=== PATIENT | female | born 1980 | race Caucasian/White ===

== ENCOUNTER 2021-03-02 09:16 | Emergency (ER) | payer OTHER, SELFPAY ==
[2021-03-02 09:17] VITALS: BP 115/77; PULSE 64; RESP 16; TEMP 36.3; O2SAT 100; BMI 25.8
--- NOTE | 2021-03-02 09:43 | EX.ED.DYSGE1 ---
HPI History of Present Illness Chief Complaint: Abd Pain Informant: patient and EMS Narrative Narrative: 40-year-old female presenting to the emergency department with abdominal pain and vomiting. Patient states that approximately 0230 hours last night she began to vomit. She notes that after several times of having emesis her abdomen started to hurt. She notes pain mostly on the right side of her abdomen that seems to radiate towards the center. She denies any radiation to the back. No diarrhea. No fevers. No known bad food exposures. No one else has been sick. She denies a history of pancreatitis. She notes that she does use cannabis but not regularly. PFSH PFSH Medical History no medical history no medical history Home Medications ondansetron 4 mg PO Q6H PRN PRN #15 tab 03/02/21 [Rx Last Taken Unknown] Allergy/AdvReac Type Severity Reaction Status Date / Time doxycycline AdvReac Vomiting Verified 03/02/21 09:20 Surgical History no surgical history no surgical history Social History (Updated 03/02/21 @ 09:[address] Jose Luis George, DO) Smoking Status: Current every day smoker tobacco type: e-cigarettes Electronic Cigarette Use: with nicotine substance use type: marijuana ROS ROS ED Constitutional Constitutional ED: Denies chills or weight loss Eyes Eyes: Denies change in vision or diplopia ENT ENT ED: Denies ear pain, rhinorrhea or sore throat Cardiovascular Cardiovascular: Denies chest pain, orthopnea, palpitations or racing heartbeat Respiratory/Chest Respiratory/Chest: Denies cough, dyspnea or orthopnea Gastrointestinal Gastrointestinal: Reports abdominal pain, nausea and vomiting; Denies diarrhea Genitourinary Genitourinary ED: Denies dysuria, hematuria or urinary frequency Musculoskeletal Musculoskeletal: Denies arthralgias or myalgias Integumentary Denies abscess or rash Neurologic Neurologic: Denies headache(s) or weakness Psychiatric Psychiatric: Denies anxiety, depression, suicidal ideation or suicidal thoughts Endocrine Endocrinology: Denies polydipsia, polyphagia or polyuria Allergic/Immunologic Allergic/Immunologic ED: Denies mouth swelling, tongue swelling or urticaria EXAM Physical Exam Narrative Exam Narrative: Patient sitting on the bed experiencing dry heaves Const Vital Signs: 03/02/21 09:17 03/02/21 13:00 Temperature 97.4 F L Temperature Source Temporal Pulse Rate 64 60 Respiratory Rate 16 18 Blood Pressure 115/77 120/74 Blood Pressure Mean 89 89 Pulse Ox 100 100 Oxygen Delivery Method Room Air Room Air Positive well nourished and well developed General Appearance ED: well developed HEENT Reports normocephalic, head/scalp atraumatic and moist mucous membranes Eyes PERRL and EOMs intact bilaterally Neck no lymphadenopathy, supple and no JVD Resp normal respiratory effort and clear to auscultation bilaterally Cardio regular rate, regular rhythm and no murmurs GI Auscultation: normoactive bowel sounds Palpation: soft and tender Back/Spine no CVA tenderness and normal ROM Extremity normal to inspection General Extremety ED: Negative for edema General Extremity: Negative for edema Neuro oriented x3 and CN's II-XII intact bilaterally Sensorium / Orientation: alert Motor Exam: strength 5/5 throughout Psych mental status grossly normal Mood & Affect: Negative for depressed or tearful Skin no rashes or lesions noted and no wounds MDM MDM MDM Narrative Medical decision making narrative: Patient received IV fluids, Zofran and morphine. She states she is not any better. White count returns at 13.7. CMP shows a total bilirubin of 1.2. Lipase 213 test is negative. Patient does not wish a CAT scan. She states she cannot afford one. She received a milligram of Ativan and additional Zofran. Patient continues to vomit and Thorazine and Benadryl ordered. She has been resting and not having any more emesis. She does state that she feels significantly better I do wonder if this could be cannabis hyperemesis syndrome. We did talk to her about this. Clinically the patient has normal vital signs and is not tolerating p.o. fluids pills or write for Zofran. Instructions to refrain from any cannabis use and to follow with primary care return if worsening or concerns Lab Data Attestation: I reviewed the patient's lab results. Labs: Laboratory Results - last 24 hr 03/02/21 03/02/21 03/02/21 09:20 09:20 10:05 WBC 13.7 H RBC 4.62 Hgb 13.6 Hct 41.7 MCV 90.3 MCH 29.4 MCHC 32.6 RDW Std Deviation 42.3 RDW Coeff of [place] 12.9 Plt Count 335 MPV 11.6 Immature Gran % (Auto) 0.500 Neut % (Auto) 86.7 H Lymph % (Auto) 8.1 L [place] % (Auto) 4.5 Eos % (Auto) 0.0 Baso % (Auto) 0.2 Absolute Neuts (auto) 11.8 H Absolute Lymphs (auto) 1.11 Nucleated RBC % 0 Sodium 137 Potassium 3.7 Chloride 103 Carbon Dioxide 27.0 Anion Gap 7 BUN 10 Creatinine 0.79 Estim Creat Clear Calc 89.50 Est GFR (MDRD) Af Amer 104 Est GFR (MDRD) Non-Af 86 BUN/Creatinine Ratio 12.7 Glucose 102 Calcium 9.6 Total Bilirubin 1.20 H Direct Bilirubin 0.20 AST 18 ALT 22 Alkaline Phosphatase 90 Total Protein 8.9 H Albumin 4.3 Globulin 4.6 H Lipase 213 Serum , Qual NEGATIVE Discharge Plan Triage Chief Complaint: Abd Pain ED Provider: Jose Luis George Dx/Rx/DC Orders Clinical Impression: Vomiting, Abdominal pain Instructions: ED Vomiting (Adult), Cannabinoid Hyperemesis Syndrome Prescriptions: New ondansetron [ondansetron] 4 MG tablet 4 mg PO Q6H PRN PRN (Reason: Nausea) Qty: 15 RF: 0 Primary Care Provider: Care Physician,No Primary Referrals: Nava Vallejo [NON-STAFF] - As Needed (for primary care) Care Physician,No Primary [Primary Care Provider] - Disposition Disposition: Home, Self Care
[2021-03-02 09:48] LABS: Absolute Lymphocyte Count 1.11 X10^3/uL (0.83-4.51); Absolute Neutrophil Count 11.8 X10^3/uL (2.0-7.7); Basophil# 0.03 X10^3/uL; Basophil% 0.2 % (0-1); Hematocrit 41.7 % (37-47); Hemoglobin 13.6 g/dL (12.0-15.0); Lymphocyte # 1.11 X10^3/ul (0.83-4.51); Lymphocyte % 8.1 % (19-41); Mean Corp Hgb Conc 32.6 g/dL (32-36); Mean Corpuscular Hgb 29.4 pg (27.0-32.0); Mean Corpuscular Volume 90.3 fL (81-99); Mean Platelet Vol. 11.6 fl (6.2-12.0); Monocyte# 0.61 X10^3/uL; Monocyte% 4.5 % (0-10); NRBC Flagged by Analyzer 0 % (0-5); Neutrophil # 11.83 X10^3/uL (2.7-7.7); Neutrophil % 86.7 % (47-70); Platelet Count 335 K/mm3 (150-450); RBC Distribution Width CV 12.9 % (11.6-14.6); RBC Distribution Width SD 42.3 fl (35.1-43.9); Red Blood Count 4.62 M/mm3 (4.2-5.4); White Blood Count 13.7 K/mm3 (4.4-11.0)
[2021-03-02] MEDS: 0.9% Normal Saline 1,000 ML 1000 ML IV (09:59)
[2021-03-02] MEDS: Ondansetron 4 MG/2 ML Vial IV ×3 (09:59→15:46)
[2021-03-02] MEDS: Morphine 4 MG/ML Syringe IV (10:00)
[2021-03-02 10:02] LABS: AST(SGOT) 18 U/L (15-37); Alanine Aminotransfer ALT/SGPT 22 U/L (13-56); Albumin, Serum 4.3 g/dL (3.2-5.0); Alkaline Phosphatase 90 U/L (45-117); Anion Gap 7 (5-15); BUN 10 mg/dL (7-18); BUN/Creat Ratio 12.7 RATIO (10-20); Calcium,Total 9.6 mg/dL (8.5-10.1); Chloride 103 mmol/L (98-107); Creatinine, Serum 0.79 mg/dL (0.55-1.02); EST Glomerular Filtration Rate 86 mL/min (>60); Est Glom Filt Rate - Afr Amer 104 mL/min (>60); Globulin 4.6 g/dL (2.2-4.2); Glucose 102 mg/dL (74-106); Lipase 213 U/L (73-393); Potassium 3.7 mmol/L (3.5-5.1); Protein, Total 8.9 g/dL (6.4-8.2); Sodium Level 137 mmol/L (136-145)
[2021-03-02 10:20] LABS: Internal QC Validated? YES +Cl - CLEAR BKGD; Pregnancy, Serum, hCG Quali. NEGATIVE Negative
[2021-03-02] MEDS: LORazepam 2 MG/ML Syringe 1 MG IV (10:42)
[2021-03-02 13:00] VITALS: BP 120/74; PULSE 60; RESP 18; O2SAT 100
--- NOTE | 2021-03-02 14:01 | ED.RN ---
pt states ativan is what she needs for more relief from the abdominal cramping. Dr George made aware and was told the benadryl/thorazine is running now. pt updated that no ativan would be ordered at this time.
[2021-03-02 15:35] VITALS: BP 123/68; PULSE 98; RESP 12; O2SAT 98
== END 2021-03-02 15:54 | disposition home or self-care (01) ==
PROVIDERS: Emergency Provider Emergency Medicine
DX: R10.9 Unspecified abdominal pain (principal); R11.10 Vomiting, unspecified; F17.290 Nicotine dependence, other tobacco product, uncomplicated
CPT/HCPCS: 80048; 80076; 83690; 84703; 85025; 96361; 96374; 96375; 96376; 99285; J7030; J7050; A4216; J2405; J3490

== ENCOUNTER → 2022-12-27 | Outpatient (CLI) | payer BC, SELFPAY ==
[2022-12-27 10:20] LABS: T4 Free Direct 1.02 ng/dL (0.76-1.46)
[2023-01-01 09:09] LABS: HPV APTIMA, High Risk Negative (Negative)
== END | disposition home or self-care (01) ==
LOC: WOBLAB 09:24
PROVIDERS: Visit Provider Nurse Practitioner Women's Health
DX: R63.5 Abnormal weight gain (principal); Z12.4 Encounter for screening for malignant neoplasm of cervix
CPT/HCPCS: 36415; 83036; 84439; 84443; 87624; 88175; G0145

== ENCOUNTER → 2022-12-31 | Outpatient (CLI) | payer BC, SELFPAY ==
--- NOTE | 2022-12-31 13:59 | BI_ITS ---
MAMMOGRAPHY - BILATERAL SCREENING REASON FOR EXAM: Female, 42 years old. Routine annual screening examination. PERTINENT HISTORY: Non-contributory. TECHNIQUE: Digital bilateral breast [place] (3D mammographic acquisition) in the CC and MLO projections. 2-D mediolateral oblique (MLO) and craniocaudad (CC) views of both breasts were obtained. CAD: Full Field Digital Mammography with Computer Added Detection was performed. COMPARISON: None. Baseline examination. FINDINGS: Breast Composition: There are scattered areas of fibroglandular density. There are no dominant masses or suspicious calcifications. No other significant abnormalities are identified. BI/SCRN MAMM (CAD)W/[place] BILAT IMPRESSION: Negative screening mammogram. Yearly followup mammogram recommended. (A) ASSESSMENT CATEGORY: BIRADS Category 1: Negative. A letter regarding these results will be sent to the patient by the facility within 30 days. Approximately 10% of breast cancers are not detected by mammography. A normal mammogram should not delay biopsy of a clinically suspicious abnormality. [id number] Electronically Signed: Jadiel Pyle MD at 14:58 EDT ,
== END | disposition home or self-care (01) ==
PROVIDERS: Referring Provider Nurse Practitioner Women's Health; Visit Provider Nurse Practitioner Women's Health
DX: Z12.31 Encounter for screening mammogram for malignant neoplasm of breast (principal)
CPT/HCPCS: 77063; 77067

== ENCOUNTER 2024-06-28 18:57 | Emergency (ER) | payer BC, SELFPAY ==
[2024-06-28 18:58] VITALS: BP 92/50; PULSE 75; RESP 26; TEMP 36.9; O2SAT 98; BMI 29.2
--- NOTE | 2024-06-28 19:05 | RAD_ITS ---
PROCEDURE: CHEST PA AND LATERAL REASON FOR EXAM: Tested positive for flu last week. Shortness of breath. Hypoventilation. TECHNIQUE: Frontal and lateral views of the chest. COMPARISON: None. FINDINGS: Cardiac monitoring leads overlie the chest wall. Mild increased lung markings, right lower lobe. No pleural effusions, thickening, or pneumothorax. Heart and mediastinum are normal. No hilar masses. Bones and soft tissues are unremarkable. RAD/Chest PA and Lateral IMPRESSION: Suspicion of developing inflammation in the right lower lobe. Reading Location: [facility]
[2024-06-28 19:15] VITALS: BP 133/81; PULSE 71; RESP 19; TEMP 37; O2SAT 99
[2024-06-28 20:02] VITALS: BP 106/81; PULSE 69; RESP 18; TEMP 37; O2SAT 99
--- NOTE | 2024-06-28 20:08 | EX.ED.DYSGE1 ---
HPI History of Present Illness Chief Complaint: Shortness of Breath Informant: patient Onset/Context/Timing Onset: Days Context: Gradual Onset Timing: Continuous Quality: Cannot catch my breath Location: Chest Worsened by: Coughing Relieved by: Nothing Narrative Narrative: Patient presents with shortness of breath that has been getting worse over the past couple days. Patient states her breathing is worse after coughing episodes. Patient states she has had a fever up to 103 at home. Patient admits to some nausea but denies any vomiting. Patient admits to pain in her back as well as a headache. Patient states her symptoms have been constant for the past few days. Patient states nothing seems to help with her symptoms. PFSH PFS Medical History no medical history Home Medications ?Medication ?Instructions ?Recorded ?Last Taken ?Type albuterol sulfate 90 mcg/actuation 2 puff inhalation Q4-6H PRN 06/21/24 Unknown Rx aerosol inhaler shortness of breath or wheezing #6.7 grams methylprednisolone 4 mg tablets in See Rx Instructions PO PER PKG DIR 06/21/24 Unknown Rx a dose pack (Medrol (Silviano)) #21 tabs ondansetron 4 mg disintegrating 4 mg PO Q6H PRN PRN Nausea #15 tabs 06/21/24 Unknown Rx tablet azithromycin 250 mg tablet 250 mg PO DAILY #4 TABLETS 06/28/24 Unknown Rx Allergy/AdvReac Type Severity Reaction Status Date / Time doxycycline AdvReac Vomiting Verified 06/21/24 12:31 Family History (Updated 06/21/24 @ 12:32 by Glenna Aguillon) Other Colon cancer Surgical History No pertinent past surgical history Social History Smoking Status: Former smoker Electronic Cigarette Use: with nicotine substance use type: marijuana ROS ROS ED Constitutional Constitutional ED: Reports fever(s); Denies chills Eyes Eyes: Denies blurry vision or change in vision ENT ENT ED: Denies rhinorrhea or sore throat Cardiovascular Cardiovascular: Denies chest pain or palpitations Respiratory/Chest Respiratory/Chest: Reports cough and dyspnea Gastrointestinal Gastrointestinal: Reports nausea; Denies vomiting Genitourinary Genitourinary ED: Denies dysuria or hematuria Musculoskeletal Musculoskeletal: Reports back pain; Denies neck pain Integumentary Denies abscess or rash Neurologic Neurologic: Reports headache(s); Denies weakness Allergic/Immunologic Allergic/Immunologic ED: Denies mouth swelling or urticaria EXAM Physical Exam Const Vital Signs: 06/28/24 18:58 06/28/24 19:15 06/28/24 19:15 Temperature 98.4 F 98.6 F Temperature Source Oral Oral Pulse Rate 75 71 Respiratory Rate 26 H 19 H Respiratory Effort Short of Breath Labored Respiratory Depth Normal Respiratory Pattern Normal Blood Pressure 92/50 L 133/81 H Blood Pressure Mean 64 98 Pulse Ox 98 99 Oxygen Delivery Method Room Air Room Air Room Air 06/28/24 20:02 Temperature 98.6 F Temperature Source Oral Pulse Rate 69 Respiratory Rate 18 Respiratory Effort Respiratory Depth Respiratory Pattern Blood Pressure 106/81 H Blood Pressure Mean 89 Pulse Ox 99 Oxygen Delivery Method Room Air Positive well nourished and well developed General Appearance ED: well developed and NAD HEENT Reports moist mucous membranes Neck supple and no JVD Resp normal respiratory effort Auscultation: wheezes expiratory wheezes Cardio regular rate and regular rhythm GI non-tender and non-distended Palpation: soft Neuro oriented x3, CN's II-XII intact bilaterally and no sensory deficits noted Sensorium / Orientation: alert Motor Exam: strength 5/5 throughout Psych mental status grossly normal MDM MDM MDM Narrative Medical decision making narrative: Differential diagnosis includes cardiac dysrhythmia, cardiac ischemia, pneumonia, pulmonary embolism, and reactive airway disease. Patient recently tested positive for influenza A so this is also in the differential diagnosis. EKG will be obtained to assess for cardiac dysrhythmia and cardiac ischemia. Chest x-ray will be obtained to assess for pneumonia and bronchitis. CBC will be obtained to assess for leukocytosis and anemia. Basic metabolic profile will be obtained to assess for electrolyte abnormality and renal function. D-dimer will be obtained to assess for pulmonary embolism. Lab Data Lab results narrative: CBC was reviewed. There is a leukocytosis of 16.2. The remainder is within normal limits. Basic metabolic profile was reviewed and was within normal limits. D-dimer was reviewed and was normal at 0.44. Radiography Chest X-Ray - ED: 2 View, Read by ED Physician, Read by Radiologist and Right Infiltrate Diagnostic Testing: Clinical Impression(s) from Imaging Studies Chest X-Ray 06/28/24 19:05 IMPRESSION: Suspicion of developing inflammation in the right lower lobe. Reading Location: [facility] and lateral chest x-ray was obtained. There are 2 views. On my independent interpretation, lung sky show developing inflammation in the right lower lobe. There is normal cardiac silhouette. Bony thorax is normal. Radiologist also interpreted the x-ray and agrees. EKG Initial EKG: Attestation: I personally reviewed and interpreted this EKG as follows: Interpretation: Sinus Rhythm (78) and No Acute Injury Pattern Comments: EKG was obtained. On my independent interpretation, it showed a normal sinus rhythm with a rate of 78. FL interval, QRS interval, and QTc intervals were all normal. [place] was normal. There are no acute ST or T wave changes. Prior EKG tracings: not available for review Prior: No Prior Treatment and Re-Evaluation :: Patient was given a DuoNeb aerosol here. Patient was advised of her findings. Given the leukocytosis and developing infiltrate, we will cover the patient with Zithromax for possible secondary bacterial pneumonia. Patient was instructed to continue her albuterol inhaler as previously prescribed. Patient was instructed to follow-up with her primary care physician in 5 to 7 days. Patient was instructed to return if worse in any way. Patient understood and was agreeable with the plan. All questions were answered. Discharge Plan Triage Chief Complaint: Shortness of Breath ED Provider: Del Eddy Dx/Rx/DC Orders Clinical Impression: Pneumonia, Leukocytosis Instructions: ED Pneumonia (Adult) Prescriptions: New azithromycin 250 mg tablet 250 mg PO DAILY Qty: 4 0RF No Action ondansetron 4 mg tablet,disintegrating 4 mg PO Q6H PRN PRN (Reason: Nausea) Qty: 15 0RF methylprednisolone [Medrol (Silviano)] 4 mg tablets,dose pack See Rx Instructions PO PER PKG DIR Qty: 21 0RF Rx Instructions: PO PER PKG DIR albuterol sulfate 90 mcg/actuation HFA aerosol inhaler 2 puff inhalation Q4-6H PRN (Reason: shortness of breath or wheezing) Qty: 6.7 0RF Primary Care Provider: Care Physician,No Primary Referrals: Del Fraire MD [Med Staff - [employer]] - 5-7 Days Care Physician,No Primary [Primary Care Provider] - Print Language: Tajik Disposition Disposition: Home, Self Care
[2024-06-28 20:40] LABS: Absolute Lymphocyte Count 2.13 X10^3/uL (0.83-4.51); Absolute Neutrophil Count 11.3 X10^3/uL (2.0-7.7); Basophil# 0.06 X10^3/uL; Basophil% 0.4 % (0-1); Eosinophil# 0.19 X10^3/uL; Eosinophils% 1.2 % (0-5); Hematocrit 36.7 % (37-47); Hemoglobin 12.2 g/dL (12.0-15.0); Lymphocyte # 2.13 X10^3/ul (0.83-4.51); Lymphocyte % 13.1 % (19-41); Mean Corp Hgb Conc 33.2 g/dL (32-36); Mean Corpuscular Volume 90.4 fL (81-99); Mean Platelet Vol. 12.1 fl (6.2-12.0); Monocyte# 2.34 X10^3/uL; Monocyte% 14.4 % (0-10); NRBC Flagged by Analyzer 0 % (0-5); Neutrophil # 11.31 X10^3/uL (2.7-7.7); Neutrophil % 69.7 % (47-70); POSITIVE DIFFERENTIAL YES; Platelet Count 325 K/mm3 (150-450); RBC Distribution Width CV 12.8 % (11.6-14.6); RBC Distribution Width SD 42.5 fl (35.1-43.9); Red Blood Count 4.06 M/mm3 (4.2-5.4); White Blood Count 16.2 K/mm3 (4.4-11.0)
[2024-06-28] MEDS: Ipratropium/Albuterol Sulfate 3 ML AMPUL.NEB INHALATION (20:42)
[2024-06-28 20:43] VITALS: PULSE 92; RESP 18
[2024-06-28 20:49] LABS: D-Dimer Quantitative (DVT/PE) 0.44 FEU/ug/m (0.27-0.49)
[2024-06-28 20:53] LABS: Anion Gap 9 (5-15); BUN 9 mg/dL (7-18); BUN/Creat Ratio 11.6 RATIO (10-20); Calcium,Total 9.2 mg/dL (8.5-10.1); Chloride 101 mmol/L (98-107); Creatinine, Serum 0.78 mg/dL (0.55-1.02); EST Glomerular Filtration Rate 86 mL/min (>60); Est Glom Filt Rate - Afr Amer 104 mL/min (>60); Estimated Creatinine Clearance 101.43 ml/min; Glucose 85 mg/dL (74-106); Potassium 3.6 mmol/L (3.5-5.1); Sodium Level 136 mmol/L (136-145)
[2024-06-28 20:59] LABS: Differential Indicated SCAN CRITERIA MET
[2024-06-28 21:00] VITALS: BP 110/83
[2024-06-28] MEDS: Azithromycin 250 MG Tablet 500 MG PO (21:23)
[2024-06-28 21:30] LABS: Differential Comment SCANNED; Hypochromasia 1+; Platelet Estimate ADEQUATE (ADEQ)
[2024-06-30 13:55] LABS: Pathologist Review Reviewed
== END 2024-06-28 21:33 | disposition home or self-care (01) ==
PROVIDERS: Emergency Provider Emergency Medicine; Referring Provider Emergency Medicine; Visit Provider Emergency Medicine
DX: J18.9 Pneumonia, unspecified organism (principal); Z87.891 Personal history of nicotine dependence
CPT/HCPCS: 71046; 80048; 85025; 85379; 93005; 94640; 99284; A4216